=== PATIENT | female | born 1980 | race Caucasian/White ===

== ENCOUNTER 2017-07-11 09:42 | Emergency (ER) | payer OTHER ==
[2017-07-11 10:05] VITALS: RESP 16; TEMP 98.6; O2SAT 97
--- NOTE | 2017-07-11 11:11 | EDPHY ---
H & P Stated Complaint: flu sxs x 5 days;here w/ SO w/same sxs HPI/ROS: CHIEF COMPLAINT: Postnasal drip, cough HISTORY OF PRESENT ILLNESS: The patient is a 37 y/o female complaining of postnasal drip and mildly productive cough for the last 6 days. Her is also ill with similar symptoms and she wanted to be evaluated prior to flying home in 2 days. She is normally healthy. She notices cough in the morning and sometimes at night and is using cough drops for symptoms. She denies sore throat , nasal congestion, myalgias, objective fever, vomiting, sinus pain, abdominal pain, chest pain, dyspnea, leg pain. REVIEW OF SYSTEMS: A ten point review of systems was performed and is negative with the exception of the items mentioned in the HPI. Past medical history: Denies Past surgical history: Noncontributory Family history: Noncontributory Social history: . Visiting from [place], flying home in 2 days. Nonsmoker. Works as a extended day teacher. General Appearance: Alert. Vital signs reviewed. BP 139/76. Eyes: Pupils equal and round, no conjunctival injection, no discharge. Anicteric. ENT, Mouth: Normal TMs bilaterally. Mucous membranes are moist, no oropharyngeal erythema or edema. Neck: No lymphadenopathy, supple. Respiratory: Lungs are clear to auscultation; no wheezes, rales, or rhonchi. Cardiovascular: Regular rate and rhythm; no murmur, rub, or gallop. Gastrointestinal: Abdomen is soft and nontender, no masses or organomegaly, bowel sounds normal. Skin: Warm and dry, no rashes on exposed skin, normal color. Back: Nontender to palpation over the thoracolumbar spine. No CVAT. Extremities: No lower extremity edema, no calf tenderness or swelling. Neurological: Alert and oriented. Moving all four extremities easily and equally. Psychiatric: Normal affect. - Personal History LMP (Females 10-55): 1-7 Days Ago Current Tetanus Diphtheria and Acellular Pertussis (TDAP): Yes - Medical/Surgical History Other PMH: healthy - Social History Smoking Status: Never smoked Constitutional: Initial Vital Signs Temperature (C) 37 C 07/11/17 09:55 Heart Rate 86 07/11/17 09:55 Respiratory Rate 16 07/11/17 09:55 Blood Pressure 139/76 H 07/11/17 09:55 O2 Sat (%) 97 07/11/17 09:55 O2 Delivery Mode Room Air Allergies/Adverse Reactions: No Known Allergies Allergy (Unverified 07/11/17 10:05) Home Medications: Medication Instructions Recorded NK [No Known Home Meds] 07/11/17 Medical Decision Making ED Course/Re-evaluation: This is a healthy 37 y/o female who presents with a 6-day history of cough. Her exam is unremarkable. Presentation is consistent with viral syndrome. No indication for imaging or lab work. Antibiotics not recommended. Recommended she continue standard cold and cough treatments. Follow up and return precautions discussed. She is comfortable with this plan. Differential Diagnosis: DDX includes but is not limited to influenza, URI, sinusitis, pneumonia, bronchitis, RAD. Departure - Departure Disposition: Home, Routine, Self-Care Clinical Impression: Cough Condition: Good Instructions: Acute Cough (ED) Additional Instructions: 1. Increase fluid intake. You can use lozenges or gypsy cold care tea with honey for symptoms. 2. Practice good hand hygiene while symptomatic as you could be contagious. 3. Use Tylenol and ibuprofen as directed if needed for pain or fever. 4. Follow up with your primary care provider for unimproved symptoms over the next week. 5. Return to the ED for worsening of condition. Adult Pain & Fever Control: We recommend Acetaminophen (Tylenol) and Ibuprofen (Motrin,Advil) for pain and fever control. When fever is high or pain severe, both drugs can be used at the same time, but at different intervals. Please note the time differences. Your dose is: Acetaminophen 500mg every 4 to 6 hours Ibuprofen 400mg every 6-8 hours with food Note: do not take Acetaminophen with Hydrocodone (Vicodin, Lortab) or Oxycodone (Percocet). These medications also contain Acetaminophen. No more than 3000mg of Acetaminophen should be taken in 24 hours (for an adult). Referrals: aKli Chowdhury [Doctor of Osteopathy] - As per Instructions Report Scribed for: Ellen Aguilar Report Scribed by: Nelly Barragan Date of Report: 07/11/17 Time of Report: 11:26 Physician Review and Approval Statement: 07/11/17 11:11 Portions of this note were transcribed by the medical and health services manager. I, Dr. Ellen Aguilar, personally performed the history, physical exam, and medical decision- making; and confirmed the accuracy of the information in the transcribed note.
[2017-07-11 12:03] VITALS: BP 124/91; PULSE 87
== END 2017-07-11 12:03 | disposition home or self-care (01) ==
DX: R05 Cough (principal)